=== PATIENT | male | born 1960 | race Caucasian/White ===

== ENCOUNTER 2020-05-18 10:57 | Day surgery (SDC) | payer MEDICAID ==
[2020-05-14 09:43] LABS: BASOPHILS % (AUTO) 0.3 % (0-1); EOSINOPHILS # (AUTO) 0.1 X10'3 (0-0.9); EOSINOPHILS % (AUTO) 0.8 % (0-6); LYMPHOCYTES # (AUTO) 2.3 X10'3 (1.1-4.8); LYMPHOCYTES % (AUTO) 27.6 % (21-51); MEAN CORPUSCULAR HEMOGLOBIN 31.2 PG (27.0-31.0); MEAN CORPUSCULAR VOLUME 91.7 FL (78-98); MEAN PLATELET VOLUME 7.9 FL (7.4-10.4); MONOCYTES # (AUTO) 0.7 X10'3 (0-0.9); MONOCYTES % (AUTO) 8.5 % (2-12); NEUTROPHILS # (AUTO) 5.2 X10'3 (1.8-7.7); NEUTROPHILS % (AUTO) 62.8 % (42-75); PRE OP HEMATOCRIT 43.3 % (42.0-52.0); PRE OP HEMOGLOBIN 14.7 g/dL (14.0-17.9); PRE OP PLATELET COUNT 248 X10'3 (140-440); RED BLOOD COUNT 4.72 X10'6 (4.70-6.10); RED CELL DISTRIBUTION WIDTH 13.5 % (11.5-14.5)
[2020-05-14 09:57] LABS: ALBUMIN 4.2 G/DL (3.4-5.0); ALBUMIN/GLOBULIN RATIO 1.1 (1.1-1.5); ALKALINE PHOSPHATASE 47 IU/L (46-116); BLOOD UREA NITROGEN 16 MG/DL (7-18); BUN/CREATININE RATIO 13.4 (5.4-32.0); CALCIUM 9.1 MG/DL (8.5-10.1); CHLORIDE 103 MMOL/L (99-107); CREATININE 1.19 MG/DL (0.60-1.10); PRE OP ALT 39 U/L (30-65); PRE OP ANION GAP 8 (8-16); PRE OP AST 19 U/L (10-37); PRE OP BILIRUB, TOTAL 0.4 MG/DL (0.0-1.0); PRE OP GLUCOSE 120 MG/DL (70-104); PRE OP POTASSIUM 4.4 MMOL/L (3.4-5.1); PRE OP SODIUM 136 MMOL/L (135-145); TOTAL CARBON DIOXIDE 24.9 MMOL/L (24-32); eGFR 62 ML/MIN
[2020-05-18] VITALS (7 sets, daily range): BP systolic 122–166; BP diastolic 65–92
[~2020-05-18] VITALS: Ht 175.3 cm; Wt 91.7 kg
[~2020-05-18 10:57] MED LIST: FENO145T26 PO; LISI10TA4 PO; METF-436 PO; SIMV20TA PO; ceFAZolin 2gm in dextrose, iso 50 ML IV ONE; famotidine 20mg tablet PO ONE; ringers solution, lacted 1,000 ML IV SCH
[2020-05-18] MEDS ORDERED: fentaNYL/PF 50MCG/1 ML 2ML syringe IV PRN ×2 (12:45)
[2020-05-18] MEDS ORDERED: hydrALAZINE 20mg/ml inj. IV PRN (12:45)
[2020-05-18] MEDS ORDERED: morphine 2 MG/ML inj. syringe IV PRN ×2 (12:45→14:20)
[2020-05-18] MEDS ORDERED: labetalol 20mg/4ml (5mg/ml) syringe IV PRN (12:45)
[2020-05-18] MEDS ORDERED: ondansetron/PF 4mg/2ml inj IV PRN ×2 (12:45→14:20)
[2020-05-18] MEDS ORDERED: ringers solution, lacted 1,000 ML IV SCH ×2 (12:45→14:20)
[2020-05-18] MEDS ORDERED: morphine 4 MG/ML inj SYRINge IV PRN ×2 (12:45→14:20)
[2020-05-18] MEDS ORDERED: BUPIVAcaine/PF 2.5 mg/ml (0.25%) 30ml vial ONE (12:47)
[2020-05-18 12:52] LABS: CLARITY,URINE CLEAR (Clear); COLOR,URINE YELLOW (Yellow); GLUCOSE, URINE NEGATIVE (Neg); KETONES,URINE NEGATIVE (Neg); LEUKOCYTE ESTERASE ,URINE NEGATIVE (Neg); NITRITES, URINE NEGATIVE (Neg); OCCULT BLOOD,URINE NEGATIVE (Neg); PROTEIN,URINE NEGATIVE (Neg); UROBILINOGEN,URINE 0.2 E.U/dL (0.2-1.0)
[2020-05-18 12:56] LABS: UA COLLECTION TYPE CLN CATCH MIDSTREAM
[2020-05-18 13:07] LABS: PARTIAL THROMBOPLASTIN TIME 26 SECONDS (22-32)
[2020-05-18] MEDS ORDERED: sevoflurane 250ml liquid IH ONE (13:36)
[2020-05-18] MEDS ORDERED: fentaNYL/PF 50MCG/1 ML 2ML syringe ONE (13:39)
[2020-05-18] MEDS ORDERED: midazolam 2 mg/2 ml injection ONE (13:39)
[2020-05-18] MEDS ORDERED: propofol inj 20 ML IV ONE (13:40)
[2020-05-18] MEDS ORDERED: rocuronium 10mg/ml inj IV ONE (13:42)
[2020-05-18] MEDS ORDERED: proCHLORperazine 10 MG/2 ml inj IV PRN (14:20)
[2020-05-18] MEDS ORDERED: meperidine/PF 25mg/ml syringe IV PRN ×3 (14:20)
[2020-05-18] MEDS ORDERED: neostigmine methylsulfate 1 MG/ML 10ml vial ONE (14:25)
[2020-05-18] MEDS ORDERED: glycopyrrolate 0.2mg/ml inj ONE (14:25)
--- NOTE | 2020-05-18 14:41 | NUR ---
Received from OR via , accompanied by Anesthesiologist DR JOYCE and report given by Anesthesiolgist. AWAKENS TO VOICE. VITALS STABLE. DRESSING DI. RUBEN PAIN.
--- NOTE | 2020-05-18 15:41 | NUR ---
AWAKE AND ORIENTED. VITALS STABLE. DRESSING DI. RUBEN PAIN. HOME WITH HIS SISTER AT THIS TIME.
== END 2020-05-18 15:41 | disposition home or self-care (01) ==
LOC: PAS 10:57
PROVIDERS: ATTEND Surgery
DX: L72.3 Sebaceous cyst (principal); L08.89 Other specified local infections of the skin and subcutaneous tissue; E11.9 Type 2 diabetes mellitus without complications; I10 Essential (primary) hypertension; E66.9 Obesity, unspecified; Z68.30 Body mass index [BMI] 30.0-30.9, adult; F17.210 Nicotine dependence, cigarettes, uncomplicated; Z79.84 Long term (current) use of oral hypoglycemic drugs; Z79.899 Other long term (current) drug therapy; Z98.890 Other specified postprocedural states; Z79.01 Long term (current) use of anticoagulants
CPT/HCPCS: 11406; 36415; 71045; 80053; 81003; 82948; 85025; 85610; 85730; 87070; 87075; 87102; 87635; 93005; J2250; J2704; J2710; J3010; J3490; J7120; A4618; A6449; A7000